=== PATIENT | male | born 1970 | race Caucasian/White ===

== ENCOUNTER 2017-10-18 11:23 | Emergency (ER) | payer SELFPAY ==
[2017-10-18 11:33] VITALS: BP 124/82
[2017-10-18 11:47] LABS: Basophils % (Auto) 0.7 % (0.0-1.8); Eosinophils % (Auto) 0.4 % (0.0-4.3); Hematocrit 43.2 % (35.5-45.6); Hemoglobin 14.7 gm/dl (11.8-15.2); Lymphocytes % (Auto) 28.2 % (13.4-35.0); Mean Corpuscular HGB Conc 34 % (32-34); Mean Corpuscular Hemoglobin 31 pg (28-32); Mean Corpuscular Volume 91 fl (84-94); Monocytes # (Auto) 0.6 K/mm3 (0.0-0.8); Monocytes % (Auto) 8.8 % (0.0-7.3); Platelet Count 215 K/mm3 (140-440); Red Blood Count 4.73 M/mm3 (3.65-5.03); Red Cell Distribution Width 12.8 % (13.2-15.2)
[2017-10-18 12:10] LABS: Alanine Aminotransferase 37 units/L (7-56); Albumin 4.6 g/dL (3.9-5); BUN/Creatinine Ratio 11; Blood Urea Nitrogen 10 mg/dL (9-20); Calcium 9.3 mg/dL (8.4-10.2); Hemolysis Index 10
--- NOTE | 2017-10-18 13:01 | Emergency Department Report ---
HPI - General Chief Complaint: Abdominal Pain ED Past Medical Hx - Past Medical History Previous Medical History?: No - Surgical History Past Surgical History?: No - Social History Smoking Status: Never Smoker Substance Use Type: None - Medications Home Medications: Home Medications Medication Instructions Recorded Confirmed Last Taken Type Pantoprazole [Protonix] 40 mg PO QDAY #30 tablet 10/18/17 Unknown Rx ED Review of Systems ROS: Stated complaint: abdominal pain Other details as noted in HPI Physical Exam - Physical Exam Vital Signs: Vital Signs 10/18/17 11:30 Temperature 98.2 F Pulse Rate 68 Respiratory 20 Rate Blood Pressure 124/82 O2 Sat by Pulse 98 Oximetry ED Course Vital Signs 10/18/17 11:30 Temperature 98.2 F Pulse Rate 68 Respiratory 20 Rate Blood Pressure 124/82 O2 Sat by Pulse 98 Oximetry ED Medical Decision Making - Lab Data Result diagrams: 10/18/17 11:36 10/18/17 11:36 Critical care attestation.: If time is entered above; I have spent that time in minutes in the direct care of this critically ill patient, excluding procedure time. ED Disposition Clinical Impression: Gastritis Qualifiers: Gastritis type: other gastritis Chronicity: chronic Gastritis bleeding: without bleeding Qualified Code(s): K29.50 - Unspecified chronic gastritis without bleeding Disposition: DC-01 TO HOME OR SELFCARE Is pt being admited?: No Does the pt Need Aspirin: No Condition: Stable Instructions: Gastritis (ED), Helicobacter Pylori (ED) Prescriptions: Pantoprazole [Protonix] 40 mg PO QDAY #30 tablet
[2017-10-18 13:12] LABS: Bilirubin,Urine NEG (Negative); Blood,Urine NEG (Negative); Color,Urine Yellow (Yellow); Protein,Urine <15 mg/dL mg/dL (Negative); Urobilinogen,Urine < 2.0 mg/dL (<2.0)
== END 2017-10-18 12:58 | disposition home or self-care (01) ==
LOC: ED 11:23
DX: K29.60 Other gastritis without bleeding (principal)
CPT/HCPCS: 36415; 80053; 81001; 85025; 99283